=== PATIENT | male | born 1975 | race African-American/Black ===

== ENCOUNTER 2017-07-16 19:38 | Emergency (ER) | payer OTHER ==
[~2017-07-16] VITALS: Ht 193 cm; Wt 120.5 kg
[~2017-07-16 19:38] MED LIST: AMLO-511 PO; ASPI-556 PO; ATOR40TA28 PO; FAMO20 PO; HYDR25TA PO; METF1000 PO; METO50 PO; TICA90TA PO
[2017-07-16] MEDS ORDERED: LIDOCAINE HCL 1% 20 ML VIAL INJ ONE (20:45)
[2017-07-16] MEDS ORDERED: POVIDONE-IODINE 10% 15 ML SOLUTION UD TP ONE (20:45)
[2017-07-16] MEDS ORDERED: BACITRACIN 0.9 GM PACKET OINTMENT TP ONE (21:45)
[2017-07-16] MEDS ORDERED: CEPHALEXIN MONOHYDRATE 500 MG CAPSULE PO ONE (21:45)
[2017-07-16 22:20] VITALS: BP 139/86
== END 2017-07-16 22:23 | disposition home or self-care (01) ==
LOC: EMS 19:40
DX: S61.210A Laceration without foreign body of right index finger without damage to nail, initial encounter (principal); E11.9 Type 2 diabetes mellitus without complications; I10 Essential (primary) hypertension; I25.10 Atherosclerotic heart disease of native coronary artery without angina pectoris; K21.9 Gastro-esophageal reflux disease without esophagitis; E78.00 Pure hypercholesterolemia, unspecified; I25.2 Old myocardial infarction; G89.29 Other chronic pain; F17.210 Nicotine dependence, cigarettes, uncomplicated; F12.90 Cannabis use, unspecified, uncomplicated; Z79.82 Long term (current) use of aspirin; W22.8XXA Striking against or struck by other objects, initial encounter; Y93.89 Activity, other specified; Y92.89 Other specified places as the place of occurrence of the external cause; Y99.8 Other external cause status
CPT/HCPCS: 12001; 73130; 99284; 99406; J3490

== ENCOUNTER 2017-08-21 04:59 | Emergency (ER) | payer OTHER ==
[~2017-08-21] VITALS: Ht 193 cm; Wt 122.3 kg
[2017-08-21] MEDS ORDERED: AMLO10TA55 PO (05:18)
[2017-08-21] MEDS ORDERED: RANO500T3 PO (05:18)
[2017-08-21 06:44] VITALS: BP 140/88
== END 2017-08-21 07:16 | disposition home or self-care (01) ==
LOC: EMS 05:01
DX: S61.210D Laceration without foreign body of right index finger without damage to nail, subsequent encounter (principal); E11.9 Type 2 diabetes mellitus without complications; E78.00 Pure hypercholesterolemia, unspecified; I10 Essential (primary) hypertension; I25.10 Atherosclerotic heart disease of native coronary artery without angina pectoris; K21.9 Gastro-esophageal reflux disease without esophagitis; Z79.82 Long term (current) use of aspirin; X58.XXXD Exposure to other specified factors, subsequent encounter
CPT/HCPCS: 99281

== ENCOUNTER 2019-05-15 12:11 | Inpatient (IN) | payer OTHER ==
[~2019-05-15] VITALS: Ht 193 cm; Wt 129.0 kg
[2019-05-15] VITALS (9 sets, daily range): BP systolic 152–185; BP diastolic 91–110
[~2019-05-15 12:11] MED LIST changes: -AMLO-511 PO; +AMLO10TA55 PO; +ERGO2000 PO; +EZET10TA13 PO; -FAMO20 PO; +MAGOX PO; +METF-960 PO; -METF1000 PO; +METO25 PO; -METO50 PO; +NIFE60TA82 PO; +NITR0.4T52 SL; +OMEP20 PO; +SODIUM CHLORIDE 0.9% 1,000 ML ONE; +TICA60TA PO; -TICA90TA PO; +TRAM50TA4 PO
[2019-05-15] MEDS ORDERED: ASPIRIN 325 MG TABLET PO ONE (13:00)
[2019-05-15] MEDS ORDERED: SODIUM CHLORIDE 0.9% 1,000 ML IV ONE ×2 (13:00)
[2019-05-15 13:06] LABS: BASOPHILS % (AUTO) 0.6 % (0.0-2.0); EOSINOPHILS % (AUTO) 0.9 % (1.0-6.0); HEMATOCRIT 42.8 % (41-53); HEMOGLOBIN 14.2 g/dL (13.5-17.5); LYMPHOCYTES # (AUTO) 1.3 K/uL (1.0-4.8); LYMPHOCYTES % (AUTO) 18.3 % (22.0-44.0); MEAN CORPUSCULAR HEMOGLOBIN 26.2 pg (26.0-34.0); MEAN CORPUSCULAR HGB CONC 33.1 G/dL (31.0-37.0); MEAN CORPUSCULAR VOLUME 79 fL (80-100); MONOCYTES # (AUTO) 0.6 K/uL (0.1-1.0); MONOCYTES % (AUTO) 8.1 % (2.0-9.0); NEUTROPHILS # (AUTO) 5.1 K/uL (1.8-7.7); NEUTROPHILS % (AUTO) 72.1 % (40.0-70.0); PLATELET COUNT (AUTO) 166 K/uL (150-450); RED BLOOD CELL COUNT(AUTO) 5.39 MIL/uL (4.50-5.90); RED CELL DISTRIBUTION WIDTH 14.9 % (11.5-14.5)
[2019-05-15 13:18] LABS: HEMOGLOBIN A1C 6.8 % (4.5-6.2)
[2019-05-15 13:20] LABS: ANION GAP 7 mmol/L (8-16); CALCIUM, TOTAL 8.9 mg/dL (8.8-10.5); CARBON DIOXIDE 30 mmol/L (22-29); CHLORIDE 103 mmol/L (98-107); CREATININE 1.21 mg/dL (0.60-1.30); GLOMERULAR FILTR. RATE CALC > 60 mL/min (>60); GLUCOSE,RANDOM 119 mg/dL (70-110); POTASSIUM 3.7 mmol/L (3.5-5.1); SODIUM SERUM 140 mmol/L (136-145); UREA NITROGEN, BLOOD 16 mg/dL (7-18)
[2019-05-15 13:21] LABS: PROTHROMBIN TIME 10.3 SEC (9.4-11.6)
[2019-05-15 13:26] LABS: CHOL/HDL RATIO 3.8 (4.2-7.3); CHOLESTEROL 137 mg/dL (131-200); HDL CHOLESTEROL 36 mg/dL (40-60); LDL CHOL (CALC.) 73 mg/dL (0-130); TRIGLYCERIDES 138 mg/dL (15-150)
[2019-05-15] MEDS ORDERED: IOHEXOL 300 MG/ML 150 ML VIAL ONE ×2 (14:12→15:13)
[2019-05-15] MEDS ORDERED: LIDOCAINE/PF 1% 30 ML VIAL ONE (14:12)
[2019-05-15] MEDS ORDERED: SODIUM BICARBONATE 50 MEQ/50 ML VIAL ONE (14:12)
[2019-05-15] MEDS ORDERED: HEPARIN SODIUM 1000 UNITS/NS 1,000 ML ONE (14:13)
[2019-05-15] MEDS ORDERED: IOHEXOL 300 MG/ML 100 ML VIAL ONE (14:28)
[2019-05-15] MEDS ORDERED: MIDAZOLAM HCL 2 MG/2 ML VIAL ONE ×2 (14:34→14:49)
[2019-05-15] MEDS ORDERED: FentaNYL CITRATE-PF 100 MCG/2 ML VIAL ONE ×2 (14:34→14:48)
[2019-05-15] MEDS ORDERED: HEPARIN SODIUM 1000 UNITS/NS 1,000 ML IARTER ONE (14:57)
[2019-05-15] MEDS ORDERED: SODIUM CHLORIDE 0.9% 500 ML IV ONE (14:57)
[2019-05-15] MEDS ORDERED: VERAPAMIL HCL 2.5 MG/ML 2 ML VIAL ONE (14:59)
[2019-05-15] MEDS ORDERED: NITROGLYCERIN 50 MG/D5% WATER 0 ML ONE (14:59)
[2019-05-15] MEDS ORDERED: FentaNYL CITRATE-PF 100 MCG/2 ML VIAL IVP ONE ×4 (15:00→15:30)
[2019-05-15] MEDS ORDERED: IOHEXOL 300 MG/ML 50 ML VIAL IARTER ONE (15:00)
[2019-05-15] MEDS ORDERED: IOHEXOL 300 MG/ML 150 ML VIAL IARTER ONE (15:00)
[2019-05-15] MEDS ORDERED: MIDAZOLAM HCL 2 MG/2 ML VIAL IVP ONE ×4 (15:00→15:30)
[2019-05-15] MEDS ORDERED: LIDOCAINE 1% 30 ML/SOD BICARB 8.4% 4 ML SQ ONE (15:00)
[2019-05-15] MEDS ORDERED: IOHEXOL 300 MG/ML 100 ML VIAL IARTER ONE (15:00)
[2019-05-15] MEDS ORDERED: HEPARIN SODIUM,PORCINE 5,000 UNITS/ML VIAL IVP ONE (15:30)
[2019-05-15] MEDS ORDERED: TICAGRELOR 90 MG TABLET PO ONE (15:30)
[2019-05-15] MEDS ORDERED: ONDANSETRON HCL 4 MG/2 ML VIAL ONE (15:57)
[2019-05-15] MEDS ORDERED: DEXTROSE 50%-WATER 25 GM/50 ML SYRINGE IVP PRN (16:00)
[2019-05-15] MEDS ORDERED: HydrALAZINE HCL 20 MG/ML VIAL IVP PRN (16:00)
[2019-05-15] MEDS ORDERED: ATORVASTATIN CALCIUM 40 MG TABLET PO ONE (16:00)
[2019-05-15] MEDS ORDERED: ZOLPIDEM TARTRATE 10 MG TABLET PO PRN (16:00)
[2019-05-15] MEDS ORDERED: TraMADol HCL 50 MG TABLET PO PRN (16:00)
[2019-05-15] MEDS ORDERED: ONDANSETRON HCL 4 MG/2 ML VIAL IVP PRN (16:00)
[2019-05-15] MEDS ORDERED: INSULIN LISPRO 100 UNITS/ML SQ PRN (16:00)
[2019-05-15] MEDS ORDERED: HYDROCODONE/ACETAMINOPHEN 10-325 MG TABLET PO PRN (16:00)
[2019-05-15] MEDS ORDERED: ACETAMINOPHEN 325 MG TABLET PO PRN (16:00)
[2019-05-15] MEDS ORDERED: MAG HYDROX/AL HYDROX/SIMETH 30 ML SUSP UDCUP PO PRN (16:00)
[2019-05-15] MEDS ORDERED: ACETAMINOPHEN 650 MG/20.3 ML SOLUTION UDCUP PO PRN (16:00)
[2019-05-15] MEDS ORDERED: SODIUM CHLORIDE 0.9% 1,000 ML IV SCH (16:30)
[2019-05-15] MEDS ORDERED: MORPHINE SULFATE 2 MG/ML SYRINGE IVP PRN (16:45)
[2019-05-15] MEDS: AmLODIPine BESYLATE 10 MG TABLET PO SCH (17:18)
[2019-05-15] MEDS: HydrALAZINE HCL 25 MG TABLET PO SCH ×2 (18:00→20:37)
[2019-05-15] MEDS: METOPROLOL TARTRATE 25 MG TABLET PO SCH (20:37)
[2019-05-15] MEDS: TICAGRELOR 90 MG TABLET PO SCH (20:37)
[2019-05-15] MEDS ORDERED: OMEPRAZOLE 20 MG CAPSULE PO SCH (21:00)
[2019-05-15] MEDS ORDERED: ZOLPIDEM TARTRATE 5 MG TABLET PO PRN (21:11)
[2019-05-16] VITALS: BP 150/93
[2019-05-16 04:00] VITALS: BP 143/92
[2019-05-16 07:34] LABS: GLUCOSE,POINT OF CARE 148 MG/DL (70-110)
[2019-05-16 07:34] LABS: GLUCOSE,POINT OF CARE 115 MG/DL (70-110)
[2019-05-16 08:00] VITALS: BP 171/105
[2019-05-16] MEDS ORDERED: LISINOPRIL 10 MG TABLET PO SCH (09:00)
[2019-05-16] MEDS ORDERED: ASPIRIN 81 MG CHEWABLE TABLET PO SCH (09:00)
[2019-05-16] MEDS: METOPROLOL TARTRATE 25 MG TABLET PO SCH (09:32)
[2019-05-16] MEDS: AmLODIPine BESYLATE 10 MG TABLET PO SCH (09:32)
[2019-05-16] MEDS: TICAGRELOR 90 MG TABLET PO SCH (09:32)
[2019-05-16] MEDS: HydrALAZINE HCL 25 MG TABLET PO SCH (09:32)
[2019-05-16 10:13] LABS: BASOPHILS % (AUTO) 0.4 % (0.0-2.0); EOSINOPHILS % (AUTO) 0.5 % (1.0-6.0); HEMATOCRIT 47.6 % (41-53); HEMOGLOBIN 15.8 g/dL (13.5-17.5); LYMPHOCYTES # (AUTO) 1.5 K/uL (1.0-4.8); LYMPHOCYTES % (AUTO) 12.9 % (22.0-44.0); MEAN CORPUSCULAR HEMOGLOBIN 26.4 pg (26.0-34.0); MEAN CORPUSCULAR HGB CONC 33.1 G/dL (31.0-37.0); MEAN CORPUSCULAR VOLUME 80 fL (80-100); MONOCYTES # (AUTO) 0.8 K/uL (0.1-1.0); MONOCYTES % (AUTO) 7.2 % (2.0-9.0); NEUTROPHILS # (AUTO) 9.2 K/uL (1.8-7.7); PLATELET COUNT (AUTO) 189 K/uL (150-450); RED BLOOD CELL COUNT(AUTO) 5.96 MIL/uL (4.50-5.90); RED CELL DISTRIBUTION WIDTH 14.9 % (11.5-14.5)
[2019-05-16 10:23] LABS: ANION GAP 8 mmol/L (8-16); CALCIUM, TOTAL 9.6 mg/dL (8.8-10.5); CARBON DIOXIDE 30 mmol/L (22-29); CHLORIDE 99 mmol/L (98-107); CREATININE 1.28 mg/dL (0.60-1.30); GLOMERULAR FILTR. RATE CALC > 60 mL/min (>60); GLUCOSE,RANDOM 178 mg/dL (70-110); POTASSIUM 3.9 mmol/L (3.5-5.1); SODIUM SERUM 137 mmol/L (136-145); UREA NITROGEN, BLOOD 13 mg/dL (7-18)
[2019-05-16 10:47] LABS: CREATINE KINASE, TOTAL ONLY 127 U/L (39-308)
== END 2019-05-16 10:30 | disposition home or self-care (01) | DRG 175 ==
LOC: CATHLAB 12:11 → ICU 16:20
PROVIDERS: ADMIT Specialist; ATTEND Specialist
PROC: 027034Z Dilation of Coronary Artery, One Artery with Drug-eluting Intraluminal Device, Percutaneous Approach (ICD-10-PCS; principal; 2019-05-15)
PROC: 4A023N7 Measurement of Cardiac Sampling and Pressure, Left Heart, Percutaneous Approach (ICD-10-PCS; 2019-05-15)
PROC: B2111ZZ Fluoroscopy of Multiple Coronary Arteries using Low Osmolar Contrast (ICD-10-PCS; 2019-05-15)
PROC: B2151ZZ Fluoroscopy of Left Heart using Low Osmolar Contrast (ICD-10-PCS; 2019-05-15)
DX: I25.10 Atherosclerotic heart disease of native coronary artery without angina pectoris (principal); E11.9 Type 2 diabetes mellitus without complications; I10 Essential (primary) hypertension; I25.2 Old myocardial infarction
CPT/HCPCS: 83036; 87081; 92920; 92928; 93005; G0378; J0360; J1644; J2250; J2270; J2405; J3010; J3490; J7030; Q9967

== ENCOUNTER 2019-12-04 03:01 | Emergency (ER) | payer OTHER ==
[~2019-12-04] VITALS: Ht 193 cm; Wt 125.0 kg
[~2019-12-04 03:01] MED LIST changes: -SODIUM CHLORIDE 0.9% 1,000 ML ONE
[2019-12-04] MEDS ORDERED: CLINDAMYCIN HCL 150 MG CAPSULE PO ONE (04:00)
[2019-12-04] MEDS ORDERED: ACETAMINOPHEN 500 MG TABLET PO ONE (04:00)
[2019-12-04 04:21] VITALS: BP 142/75
== END 2019-12-04 04:26 | disposition home or self-care (01) ==
LOC: EMS 03:01
DX: S02.5XXA Fracture of tooth (traumatic), initial encounter for closed fracture (principal); I25.10 Atherosclerotic heart disease of native coronary artery without angina pectoris; E11.9 Type 2 diabetes mellitus without complications; E78.00 Pure hypercholesterolemia, unspecified; I10 Essential (primary) hypertension; F17.210 Nicotine dependence, cigarettes, uncomplicated; F12.90 Cannabis use, unspecified, uncomplicated; Z79.82 Long term (current) use of aspirin; Z79.899 Other long term (current) drug therapy; X58.XXXA Exposure to other specified factors, initial encounter; Y93.89 Activity, other specified; Y92.89 Other specified places as the place of occurrence of the external cause; Y99.8 Other external cause status